=== PATIENT | male | born 1925 | race Caucasian/White ===

== ENCOUNTER 2016-09-27 14:15 | Emergency (ER) | payer MEDICARE, BC ==
[~2016-09-27] VITALS: Ht 172.7 cm; Wt 81.8 kg
[2016-09-27 14:21] VITALS: TEMP 97.7
[2016-09-27] MEDS ORDERED: TOPROL XL 25MG25 MG PO (15:03)
[2016-09-27] MEDS ORDERED: ASPIRIN 81M81 MG/TA2 PO (15:03)
[2016-09-27] MEDS ORDERED: ARICEPT10 MG PO (15:03)
[2016-09-27] MEDS ORDERED: NATURE'S BLEND1 TA9 PO (15:04)
[2016-09-27] MEDS ORDERED: PRILOSEC 20MG20 MG PO (15:04)
[2016-09-27] MEDS ORDERED: ADVIL200 MG PO (15:20)
[2016-09-27] MEDS ORDERED: NORCO 325 MG-51 TAB PO (15:20)
[2016-09-27 15:27] LABS: BASO % 0.7 % (0.0-2.0); EOS # 0.1 (0.0-0.7); EOS % 2.1 % (0-4.0); GRAN # 3.2 (1.4-6.5); GRAN % 73.5 % (42.2-75.2); HEMATOCRIT 39.5 % (42.0-52.0); HEMOGLOBIN 12.4 g/dl (13.5-18.0); LYMPH # 0.6 (1.2-3.4); LYMPH % 14.4 % (20.0-51.0); MEAN CELL VOLUME 97 fl (80.0-100.0); MEAN CORPUSCULAR HEMOGLOBIN 31 pg (27.0-31.0); MEAN CORPUSCULAR HGB CONC 31 g/dl (33.0-37.0); MEAN PLATELET VOLUME 9.8 fl (7.4-10.4); MONO # 0.4 (0.1-0.6); MONO % 9.1 % (1.7-9.3); PLATELET COUNT 150 K/mm3 (130-400); RED BLOOD COUNT 4.07 M/mm3 (4.20-5.60); REDCELL DISTRIBUTION WIDTH-CV 16.4 % (11.5-14.5); WHITE BLOOD COUNT 4.3 K/mm3 (4.8-10.8)
[2016-09-27 15:35] LABS: CALCIUM 8.9 mg/dL (8.4-10.2); CREATININE, serum 0.9 mg/dL (0.66-1.25); POTASSIUM 3.5 mmol/L (3.4-5.0)
[2016-09-27 15:53] LABS: TROPONIN-I 0.061 ng/mL (0.000-0.034)
[2016-09-27] MEDS ORDERED: LASIX 40MG TABL40 MG PO (17:29)
[2016-09-27 17:39] VITALS: BP 135/89; PULSE 74
[2016-09-27 17:50] LABS: PH 5 (5-8); SQUAMOUS EPITHELIAL None Seen /hpf; URINE APPEARANCE Clear; URINE BACTERIA None Seen /hpf; URINE BILIRUBIN Negative (NEGATIVE); URINE BLOOD 1+ (NEGATIVE); URINE COLOR Yellow; URINE GLUCOSE Negative (NEGATIVE); URINE KETONE Negative (NEGATIVE); URINE RBC 0-2 /hpf; URINE UROBILINOGEN Negative (NEGATIVE); URINE WBC 0-2 /hpf
== END 2016-09-27 17:51 | disposition home or self-care (01) ==
LOC: COL.ER 14:15
PROVIDERS: Emergency Medicine
DX: I11.0 Hypertensive heart disease with heart failure (principal); I50.9 Heart failure, unspecified; R07.9 Chest pain, unspecified; F03.90 Unspecified dementia, unspecified severity, without behavioral disturbance, psychotic disturbance, mood disturbance, and anxiety; R79.89 Other specified abnormal findings of blood chemistry
CPT/HCPCS: J1940